=== PATIENT | female | born 1985 | race Two or more races ===

== ENCOUNTER 2018-02-09 05:38 | Day surgery (SDC) | payer OTHER ==
[~2018-02-09 05:38] MED LIST: MAXFE; SYNTHROID50 MCG PO
== END 2018-02-09 15:40 | disposition home or self-care (01) ==
LOC: CIR.AMB 05:38
DX: D17.23 Benign lipomatous neoplasm of skin and subcutaneous tissue of right leg (principal)

== ENCOUNTER 2024-02-23 15:20 | Emergency (ER) | payer OTHER ==
[~2024-02-23] VITALS: Ht 167.6 cm; Wt 68.0 kg
[2024-02-23 20:03] LABS: HEMATOCRIT 35.4 % (36.0-45.00); HEMOGLOBIN 12.1 g/dL (12.0-15.00); MEAN CELL VOLUME 88.3 fL (80.00-100.00); MEAN CORPUSCULAR HEMOGLOBIN 30.1 pg (27.00-32.0); PLATELET COUNT 297 K/uL (150-450); RED BLOOD COUNT 4.01 M/uL (4.00-6.00); RED CELL DISTRIBUTION WIDTH 13.7 % (11.5-14.5)
[2024-02-23] MEDS ORDERED: AZITHROMYCIN250 MG PO (21:45)
== END 2024-02-23 22:27 | disposition home or self-care (01) ==
LOC: ER 15:22
DX: B34.9 Viral infection, unspecified (principal); R53.81 Other malaise; Z20.822 Contact with and (suspected) exposure to COVID-19; Z88.0 Allergy status to penicillin